=== PATIENT | female | born 1940 | race Caucasian/White ===

== ENCOUNTER → 2019-09-23 | Outpatient (CLI) | payer MEDICARE, OTHER ==
[~2019-09-23] MED LIST: CELE100C PO; CHOL2000 PO; CLOT15CR6 TP; FLUO20CA19 PO; HYDR-826 PO; LACT1CAP37 PO; LISI5TAB7 PO; TRIA15OI10 TP
[2019-09-23 14:56] LABS: BASOPHILS # (AUTO) 0.04 x10^3/uL (0-0.1); BASOPHILS % (AUTO) 1 % (0-1); EOSINOPHILS # (AUTO) 0.19 x10^3/uL (0-0.4); EOSINOPHILS % (AUTO) 2 % (1-7); LYMPHOCYTES # (AUTO) 2.62 x10^3/uL (1-3.4); LYMPHOCYTES % (AUTO) 31 % (22-44); MD NO; MEAN CORPUSCULAR HEMOGLOBIN 30.9 pg (27.0-34.8); MEAN CORPUSCULAR HGB CONC 34.2 g/dL (32.4-35.8); MEAN CORPUSCULAR VOLUME 90.3 fL (80-100); MEAN PLATELET VOLUME 8.1 fL (7.4-10.4); MONOCYTES # (AUTO) 0.69 x10^3/uL (0.2-0.8); MONOCYTES % (AUTO) 8 % (2-9); NEUTROPHILS # (AUTO) 4.78 x10^3/uL (1.8-6.8); NEUTROPHILS % (AUTO) 57 % (42-75); PLATELET COUNT 241 x10^3/uL (130-400); RED BLOOD COUNT 4.34 x10^6/uL (3.82-5.3); RED CELL DISTRIBUTION WIDTH 13.1 % (9.6-15.2)
[2019-09-23 15:07] LABS: ALBUMIN 3.1 g/dL (3.4-5.0); ANION GAP 9 mmol/L (5-15); CALCIUM 8.3 mg/dL (8.5-10.1); CHLORIDE 100 mmol/L (98-107)
[2019-09-23 15:10] LABS: ALANINE AMINOTRANSFERASE 16 U/L (12-78); ALKALINE PHOSPHATASE 111 U/L (45-117); BILIRUBIN,TOTAL 0.5 mg/dL (0.2-1.0); CREATININE 0.58 mg/dL (0.55-1.02); TOTAL PROTEIN 6.9 g/dL (6.4-8.2)
[2019-09-23 15:44] LABS: INTERNATIONAL NORMALIZED RATIO 0.93 (0.93-1.1); PROTHROMBIN TIME 9.9 Seconds (9.6-11.5)
== END | disposition home or self-care (01) ==
LOC: STAR 13:44
PROVIDERS: ATTEND Orthopaedic Surgery
DX: Z01.818 Encounter for other preprocedural examination (principal); M16.12 Unilateral primary osteoarthritis, left hip
CPT/HCPCS: 36415; 80053; 83036; 85025; 85610; 85730; 87081; 93005

== ENCOUNTER 2019-09-30 06:45 | Inpatient (IN) | payer MEDICARE, OTHER ==
[~2019-09-30] VITALS: Ht 157.5 cm; Wt 90.1 kg
[~2019-09-30 06:45] MED LIST changes: +EPINEPHRINE 1 MG/ML, 1ML ONE; +KETOROLAC 60 MG/2 ML ONE; +ROPIvacaine/PF 0.5%, 30 ML ONE; +SODIUM CHLORIDE 0.9% 50 ML ONE; +TRANEXAMIC ACID 100 MG/ML, 10ML ONE
[2019-09-30] MEDS ORDERED: FENTANYL PF 250 MCG/5ML ONE (07:20)
[2019-09-30 07:46] VITALS: BP 169/91
[2019-09-30] MEDS ORDERED: LACTATED RINGERS 1,000 ML IV SCH (07:50)
[2019-09-30] MEDS ORDERED: VANCOMYCIN 1,000 MG ONE (07:59)
[2019-09-30] MEDS ORDERED: ONDANSETRON 2MG/ML, 2ML IV PRN (08:00)
[2019-09-30] MEDS ORDERED: ACETAMINOPHEN 650 MG/20.3 ML UDC PO PRN (08:00)
[2019-09-30] MEDS ORDERED: OXYcodone IR 5MG TABLET PO PRN (08:00)
[2019-09-30] MEDS ORDERED: DIPHENHYDRAMINE 25 MG CAPSULE PO PRN (08:00)
[2019-09-30] MEDS ORDERED: MAGNESIUM HYDROXIDE 8%, 30ML UDC PO PRN (08:00)
[2019-09-30] MEDS ORDERED: ZOLPIDEM 5MG TABLET PO PRN (08:00)
[2019-09-30] MEDS ORDERED: GABAPENTIN 300 MG CAPSULE PO ONE (08:00)
[2019-09-30] MEDS ORDERED: ACETAMINOPHEN 500 MG TABLET PO ONE (08:00)
[2019-09-30] MEDS ORDERED: TRIAMCINOLONE OINT 0.5%, 15GM TP PRN (08:00)
[2019-09-30] MEDS ORDERED: HYDROcodone/APAP 5/325 TABLET PO PRN (08:00)
[2019-09-30] MEDS ORDERED: SENNA/DOCUSATE TABLET PO PRN (08:00)
[2019-09-30] MEDS ORDERED: BISACODYL 10 MG SUPP PR PRN (08:00)
[2019-09-30] MEDS ORDERED: SCOPOLAMINE PATCH, 1.5MG PATCH.TD72 TD ONE (08:00)
[2019-09-30] MEDS ORDERED: ONDANSETRON 4 MG TABLET PO PRN (08:00)
[2019-09-30] MEDS ORDERED: PROPOFOL 10 MG/ML, 20ML ONE (08:17)
[2019-09-30] MEDS ORDERED: ONDANSETRON 2MG/ML, 2ML ONE (08:17)
[2019-09-30] MEDS ORDERED: DEXAMETHASONE 4 MG/ML, 1ML ONE (08:17)
[2019-09-30] MEDS ORDERED: ROCURONIUM 10 MG/ML,10ML ONE (08:17)
[2019-09-30] MEDS ORDERED: PHENYLEPHRINE 10 MG/ML ONE (08:17)
[2019-09-30] MEDS ORDERED: NEOSTIGMINE 1 MG/ML, 10ML ONE (08:17)
[2019-09-30] MEDS ORDERED: CEFAZOLIN 1,000 MG ONE (08:17)
[2019-09-30] MEDS ORDERED: GLYCOPYRROLATE 0.2MG/1ML, 5ML ONE (08:17)
[2019-09-30] MEDS ORDERED: PROMETHAZINE 25 MG/ML, 1ML IV PRN (08:30)
[2019-09-30] MEDS ORDERED: HYDROmorphone 2 MG/ML, 1ML IVPush PRN (08:30)
[2019-09-30] MEDS ORDERED: MEPERIDINE/PF 25MG/ML,1ML IVPush PRN (08:30)
[2019-09-30] MEDS ORDERED: LABETALOL 5MG/ML, 20ML IV PRN (08:30)
[2019-09-30] MEDS ORDERED: MORPHINE SULFATE 4 MG/ML, 1ML IVPush PRN (08:30)
[2019-09-30] MEDS ORDERED: OXYcodone 5 MG/5 ML ORAL.SOL UDC PO PRN (08:30)
[2019-09-30] MEDS ORDERED: HALOPERIDOL 5 MG/ML IV PRN (08:30)
[2019-09-30] MEDS ORDERED: hydrALAzine 20 MG/ML, 1ML IV PRN (08:30)
[2019-09-30] MEDS ORDERED: FENTANYL PF 100 MCG/2ML ONE (10:00)
[2019-09-30] MEDS: FENTANYL PF 100 MCG/2ML IV PRN ×2 (10:02→10:10)
[2019-09-30] MEDS ORDERED: OXYcodone 5 MG/5 ML ORAL.SOL UDC ONE (10:10)
[2019-09-30] MEDS ORDERED: FLUOXETINE HCL 20 MG CAPSULE PO SCH ×2 (12:00→21:00)
[2019-09-30] MEDS ORDERED: LISINOPRIL 5 MG TABLET PO SCH ×2 (12:00→21:00)
[2019-09-30 13:40] VITALS: BP 127/79
[2019-09-30] MEDS: DOCUSATE 100 MG CAPSULE PO SCH ×2 (17:14→21:17)
[2019-09-30] MEDS: CEFAZOLIN PMX 2GM/50ML 50 ML IVPB SCH (17:14)
[2019-09-30] MEDS: NS + 20MEQ KCL 1,000 ML IV SCH (18:46)
[2019-09-30] MEDS: ASPIRIN 81 MG TABLET EC PO SCH (18:46)
[2019-09-30 19:11] VITALS: BP 121/74
[2019-10-01 00:42] VITALS: BP 144/77
[2019-10-01] MEDS: CEFAZOLIN PMX 2GM/50ML 50 ML IVPB SCH (01:13)
[2019-10-01 04:44] VITALS: BP 126/72
[2019-10-01] MEDS: ASPIRIN 81 MG TABLET EC PO SCH (05:32)
[2019-10-01] MEDS ORDERED: DEXAMETHASONE 4 MG/ML, 1ML IVPush SCH (06:00)
[2019-10-01] MEDS ORDERED: TAMSULOSIN 0.4 MG CAP.ER.24H PO ONE (07:00)
[2019-10-01 07:13] VITALS: BP 148/74
[2019-10-01] MEDS: NS + 20MEQ KCL 1,000 ML IV SCH (07:30)
[2019-10-01] MEDS ORDERED: MELO7.5T31 PO (09:11)
[2019-10-01] MEDS ORDERED: TRAM50TA2 PO (09:12)
[2019-10-01] MEDS ORDERED: OXYC5CAP2 PO (09:13)
[2019-10-01] MEDS: DOCUSATE 100 MG CAPSULE PO SCH (09:30)
[2019-10-01 11:32] VITALS: BP 134/81
== END 2019-10-01 13:15 | disposition home or self-care (01) | DRG 470 ==
LOC: ORIP 06:45 → 4NE 11:23 → DCLOUNGE 10-01 13:05
PROVIDERS: ADMIT Orthopaedic Surgery; ATTEND Orthopaedic Surgery
PROC: 0SRB06A Replacement of Left Hip Joint with Oxidized Zirconium on Polyethylene Synthetic Substitute, Uncemented, Open Approach (ICD-10-PCS; principal; 2019-09-30 08:45)
DX: M16.12 Unilateral primary osteoarthritis, left hip (principal); M87.852 Other osteonecrosis, left femur; R33.9 Retention of urine, unspecified; M17.0 Bilateral primary osteoarthritis of knee; F32.9 Major depressive disorder, single episode, unspecified; I10 Essential (primary) hypertension; Z82.49 Family history of ischemic heart disease and other diseases of the circulatory system; Z72.89 Other problems related to lifestyle; Z79.899 Other long term (current) drug therapy
CPT/HCPCS: 36415; 72170; 76000; 85014; 85018; C1713; G0378; J0171; J0690; J1100; J1885; J2405; J2704; J2710; J2795; J3010; J3370; J3480; C1776; J2370